=== PATIENT | male | born 1975 | race African-American/Black ===

== ENCOUNTER 2020-09-30 09:12 | Emergency (ER) | payer OTHER ==
[2020-09-30 09:39] LABS: HEMOGLOBIN 14.4 gm/dl (14.0-17.5); RED BLOOD COUNT 6.12 M/UL (4.20-5.50); WHITE BLOOD COUNT 4.3 K/UL (4.5-11.0)
[2020-09-30 10:49] LABS: BUN/CREATININE RATIO 12 (0-10)
== END 2020-09-30 11:55 | disposition home or self-care (01) ==
LOC: ER1 09:12
PROVIDERS: Internal Medicine
DX: R42 Dizziness and giddiness (principal); R55 Syncope and collapse; R93.89 Abnormal findings on diagnostic imaging of other specified body structures
CPT/HCPCS: 70450; 71045; 80053; 82550; 82553; 84484; 85025; 85610; 85730; 93005; 93971; 99284; J7120

== ENCOUNTER → 2020-10-27 | Outpatient (CLI) | payer OTHER | LOC: MRI 13:42 | DX: M54.5 Low back pain (principal) | CPT/HCPCS: 70551 ==

== ENCOUNTER → 2020-12-17 | Outpatient (CLI) | payer OTHER ==
[2020-12-17 15:45] LABS: HEMOGLOBIN 14.6 gm/dl (14.0-17.5); RED BLOOD COUNT 6.13 M/UL (4.20-5.50)
[2020-12-17 16:32] LABS: BUN/CREATININE RATIO 14 (0-10)
[2020-12-18 08:14] LABS: VITAMIN D, 25-HYDROXY 24.2 ng/mL (30.0-100.0)
== END ==
LOC: LAB 14:16
PROVIDERS: Family Medicine
DX: Z13.220 Encounter for screening for lipoid disorders (principal); R20.0 Anesthesia of skin; R53.83 Other fatigue; R71.8 Other abnormality of red blood cells
CPT/HCPCS: 36415; 80053; 80061; 82607; 82728; 82746; 83540; 83550; 84443; 85027; 86038

== ENCOUNTER → 2020-12-29 | Outpatient (CLI) | payer OTHER | LOC: KOH-I 09:28 | DX: R10.9 Unspecified abdominal pain (principal); N13.30 Unspecified hydronephrosis | CPT/HCPCS: 74176 ==